=== PATIENT | male | born 1980 | race African-American/Black ===

== ENCOUNTER 2017-03-26 16:06 | Emergency (ER) | payer SELFPAY ==
[~2017-03-26 16:06] MED LIST: AMOXICILLIN PO; FLEXERIL PO; NAPROSYN500 MG PO; ORUDIS75 M1 PO; PREDNISONE PO; VICODIN 5/500 T1 TAB PO; VICODIN PO
== END 2017-03-26 17:00 | disposition home or self-care (01) ==
LOC: CED 16:06 → CFTX 16:06 → CED 16:56 → CFTX 16:56
DX: S16.1XXA Strain of muscle, fascia and tendon at neck level, initial encounter (principal); F17.200 Nicotine dependence, unspecified, uncomplicated; I10 Essential (primary) hypertension; V43.52XA Car driver injured in collision with other type car in traffic accident, initial encounter; Y92.410 Unspecified street and highway as the place of occurrence of the external cause
CPT/HCPCS: 99283